=== PATIENT | female | born 1995 | race Caucasian/White ===

== ENCOUNTER 2019-05-19 09:26 | Outpatient (CLI) | payer OTHER ==
--- NOTE | 2019-05-19 13:39 | ULT ---
OB ULTRASOUND: HISTORY: Size and dates. FINDINGS: Real-time imaging of the pelvis shows a single viable intrauterine in a breech presentation . The placenta is anterior in location without evidence of previa. The amniotic fluid is adequate f or this stage of . heart rate is 142 b.p.m. anatomy is unremarkable. Four-chamber heart, normal head, stom ach, kidneys, cord insertion, bladder, spine, extremities are identified. Three-vessel cord. measurements are as follows: BPD: 4.3 cm, 19 weeks 1 day Head circumference: 16.8 cm, 19 weeks 4 days Abdominal circumference: 15.7 cm, 20 weeks 6 days Femur length: 3.1 cm, 19 weeks 6 days IMPRESSION: 1. Single viable intrauterine in the breech presentation, overall measurements correspondi ng to a gestational age of 19 weeks 6 days, estimated date of delivery 10/07/2019. 2. Placenta which is anterior in location without evidence of previa. POS: [facility]
== END 2019-05-19 09:27 | disposition home or self-care (01) ==
LOC: BICULT 09:26
PROVIDERS: ATTEND Family Medicine
DX: Z34.82 Encounter for supervision of other normal pregnancy, second trimester (principal); O32.1XX0 Maternal care for breech presentation, not applicable or unspecified; Z3A.19 19 weeks gestation of pregnancy
CPT/HCPCS: 76805

== ENCOUNTER 2019-08-01 19:07 | Day surgery (SDC) | payer OTHER ==
[2019-08-01 19:54] VITALS: BP 112/67; TEMP 98.2; BMI 19.9
[2019-08-01 19:56] LABS: Amnisure Internal Control QC ACCEPTABLE (ACCEPTABLE); Amnisure Test No Membranes Rupture (No Rupture)
--- NOTE | 2019-08-01 20:25 | PDOC.EVN ---
Event Note - Event Note Event Note: 23 y/o WF at 31-32 weeks with EDC 09/30/19, patient of Dr Xiong presents with lower back pain that worsens at night. Has tried tylenol and heating pad with minimal relief. Denies any leg weakness or bladder/bowel control issues. Had episode today where she felt liquid running down her leg. Not constant. No blood per vagina. Prior full term delivery at 39-40 weeks. Fetus is active... 112/67 P 70 AFHRT 140's. Category 1 tracing. No contractions. Abdomen soft/non tender...Bilateral SI loints tender to palpation.. Amnisure was negative. A/P: Sacroiliac joint pain. Lower back spasms. 31 week gestation. Discussed use of tylenol/heating pads/lower back stretches/piriformis muscle stretching. Will give rx for flexeril 10 mg at hs prn back pain/spasm. Keep f/u with Dr. Xiong next week.
[2019-08-01] MEDS ORDERED: Cyclobenzaprine 10 MG TAB PO SCH (20:30)
== END 2019-08-01 20:43 | disposition home or self-care (01) ==
LOC: L&D/OP 19:07
PROVIDERS: ATTEND Family Medicine
DX: O99.89 Other specified diseases and conditions complicating pregnancy, childbirth and the puerperium (principal); M54.5 Low back pain; M53.3 Sacrococcygeal disorders, not elsewhere classified; Z3A.31 31 weeks gestation of pregnancy
CPT/HCPCS: 84112; 99283

== ENCOUNTER 2019-08-23 21:58 | Day surgery (SDC) | payer OTHER ==
[2019-08-23 22:27] VITALS: BP 109/68; TEMP 98.6; BMI 19.9
[2019-08-23] MEDS ORDERED: hydrALAZINE 20 MG/ML VIAL SLOW IVP PRN (22:36)
[2019-08-23] MEDS ORDERED: Butorphanol Tartrate 1 MG/ML VIAL IM SCH (22:45)
--- NOTE | 2019-08-23 22:52 | PDOC.EVN ---
Event Note - Event Note Event Note: Please see H&P Based on my exam I suspect sacroiliac joint musculoskeletal pain. No real VCAT as dictated. Await cath UA and renal sono. Clinically stable and well. CX was closed per RN exam.
[2019-08-23 23:04] LABS: Bacteria/HPF None Seen HPF (None Seen); Bilirubin Negative (Negative); Blood, Urine Negative (Negative); Clarity Clear (Clear); Glucose, Urine (Dipstick) Normal (Negative); Leukocyte Negative Leu/uL (Negative); Nitrite Negative (Negative); Protein, Urine (Dipstick) Negative (Neg-Trace); RBC/HPF 0-3 HPF (0-3); Squamous Epithelial None Seen HPF (0-3); Urobilinogen Normal mg/dL (Less than 2)
[2019-08-23 23:05] LABS: Urine Culture Reflex Yes Yes
--- NOTE | 2019-08-23 23:19 | HP ---
TIME OF EVALUATION: Time of initial evaluation was roughly 2219. LOCATION: Labor and Delivery triage B. This is a patient of Dr. Xiong. CHIEF COMPLAINT: The patient is here for lower back pain without contractions at 34 weeks. HISTORY OF PRESENT ILLNESS: This is a 24-year-old, G2, P1 with a vaginal delivery 4 years ago, who states that she has had this dull lower back pain, but denies fever, vaginal bleeding, or leakage of fluid. She has some decreased movement as well. She denies recent trauma or any other issues. REVIEW OF SYSTEMS: Complete review of systems was checked and is otherwise negative unless specified in the HPI. PAST MEDICAL HISTORY: Negative. PAST SURGICAL HISTORY: Noncontributory. OB HISTORY: She had a vaginal 4 years ago. ALLERGIES: NONE. SOCIAL HISTORY: Negative x3. PHYSICAL EXAMINATION: VITAL SIGNS: Her blood pressure is 109/68, pulse is 93, temperature is 98.6, respirations 17 and unlabored, O2 saturation is 99% on room air. GENERAL: She is in no acute distress. She seems to have some lower back pain discomfort. There is no appreciable costovertebral angle tenderness, and the uterine fundus is soft and nontender. Cervical exam is currently pending. On the nonstress test, baby's heart tones are in the 140s with accelerations and moderate variability. There are no pathological decelerations nor other contractions on tocodynamometer. ASSESSMENT: This is a 24-year-old, G2, P1, at 34 weeks and 4 days with an EDC of September 29 with nonspecific lower back pain. She does have a history of kidney stones in 2017. PLAN: 1. Based on her history of kidney stones, I have ordered a cath UA to make sure that there is no infection or gross hematuria. I have also ordered a bilateral renal ultrasound to look for any gross abnormalities. I realize that there will be normal hydronephrosis on the right greater than left based on her 34-week gestation. 2. I have ordered Stadol for nonspecific pain medication as conservative measure. 3. We will check her cervix to make sure that there is no abnormal dilation. Job ID: [id number]
--- NOTE | 2019-08-23 23:28 | PDOC.EVN ---
Event Note - Event Note Event Note: UA negative
[2019-08-23] MEDS ORDERED: Promethazine 25 MG TAB PO SCH (23:59)
--- NOTE | 2019-08-24 08:54 | ULT ---
RENAL ULTRASOUND: INDICATION: History of low back pain and and renal stones. COMPARISON: None. FINDINGS: The right kidney measures 10.3 x 3.8 x 4.5 cm. The left kidney measures 10.7 x 5.6 x 4.4 cm. There is mild right-sided hydronephrosis. There are tiny punctate echogenic foci seen within the mid and s uperior pole right kidney likely reflecting nonobstructing calculi. The bladder was decompressed. IMPRESSION: 1. Mild right hydronephrosis. This may be physiologic in nature. 2. Small punctate echogenicities within the superior pole and mid interpolar region of the right kid shayla likely reflecting tiny nonobstructing renal calculi. 3. Left kidney is having normal sonographic appearance. POS: [facility]
== END 2019-08-23 23:55 | disposition home or self-care (01) ==
LOC: L&D/OP 21:58
PROVIDERS: ATTEND Family Medicine
DX: O99.89 Other specified diseases and conditions complicating pregnancy, childbirth and the puerperium (principal); N13.30 Unspecified hydronephrosis; O36.8130 Decreased fetal movements, third trimester, not applicable or unspecified; Z3A.34 34 weeks gestation of pregnancy
CPT/HCPCS: 51701; 76770; 81001; 87086; 96372; 99283; A4353; J0595; Q0169

== ENCOUNTER 2019-08-28 13:24 | Day surgery (SDC) | payer OTHER ==
[2019-08-28] MEDS ORDERED: hydrALAZINE 20 MG/ML VIAL SLOW IVP PRN (14:58)
[2019-08-28 15:08] VITALS: TEMP 98.2; BMI 20.4
--- NOTE | 2019-08-28 15:40 | PRG ---
DATE OF SERVICE: 08/28/2019 PRIMARY OB: Geo Xiong MD CHIEF COMPLAINT: Abdominal pain and back pain and loss of "mucus plug." HISTORY OF PRESENT ILLNESS: The patient is a 24-year-old G2, P1, female with an intrauterine at 35 weeks and 2 days, who is presenting to Labor and Delivery with complaints of lower back pain that she was prescribed hydrocodone on Wednesday #15, which is persisted through the night, making it very difficult for her to sleep. She also reports she was having sharp pains that radiate down her legs and upper back from this point in her lower back. The patient thought what she lost was a mucus plug today and came in for evaluation of labor. The patient denies any fever, cough, headache, chest pain, or shortness of breath. She has had some nausea. Denies vomiting. Denies diarrhea. Has some constipation. Denies any new rashes, hip problems, knee problems, or muscle weakness. Denies vaginal bleeding, leakage of fluid, or urinary urgency or frequency. PAST MEDICAL HISTORY: Recent back pain and insomnia. PAST SURGICAL HISTORY: Negative. ALLERGIES: NO KNOWN DRUG ALLERGIES. MEDICATIONS: 1. Hydrocodone, believe to be 5/325, #15 prescribed last Wednesday. 2. Hydroxyzine. SOCIAL HISTORY: Denies drug, alcohol, or tobacco use. OB LABS: Blood type is O positive. Antibody screen is negative. RPR is nonreactive. Hepatitis B surface antigen is nonreactive. HIV is nonreactive. She is rubella immune. REVIEW OF SYSTEMS: Negative. PHYSICAL EXAMINATION: VITAL SIGNS: Blood pressure is 103/62, pulse of 88, and respiratory rate of 18. GENERAL: She appears to be in no acute distress. She is alert and oriented, cooperative and pleasant to interact with. HEENT: Head is normocephalic, atraumatic. LUNGS: Clear to auscultation bilaterally. HEART: Has a regular rate and rhythm. ABDOMEN: Gravid. She does have some tenderness in the lower pelvis with deviation of the uterus. EXTREMITIES: Nontender, nonedematous. She has no CVA tenderness, but does have significant SI joint tenderness to palpation. heart tracing. Fetus has a baseline in the 150s with moderate long-term variability, positive 15 x 15 accelerations, no decelerations. No contractions are visible on the monitor. ASSESSMENT AND PLAN: The patient is a 24-year-old G2, P1, female with an intrauterine at 35 weeks and 2 days, recently diagnosed with lower back pain and prescribed hydrocodone. She is here for concerns of possible labor. There is no evidence of labor on exam or by heart tracing. Fetus has a category I tracing and reactive NST. Once the tracing is completed, plan at this time is to try to help the patient by walking her to some stretching that may relieve some of this discomfort from her lower back. The patient will likely be discharged home with instructions to follow up with her primary OB as scheduled. Job ID: [id number]
== END 2019-08-28 16:02 ==
LOC: L&D/OP 13:24
PROVIDERS: ATTEND Family Medicine
DX: O99.89 Other specified diseases and conditions complicating pregnancy, childbirth and the puerperium (principal); R10.9 Unspecified abdominal pain; M54.5 Low back pain; N89.8 Other specified noninflammatory disorders of vagina; Z3A.35 35 weeks gestation of pregnancy
CPT/HCPCS: 99283

== ENCOUNTER 2019-09-02 23:25 | Day surgery (SDC) | payer OTHER ==
--- NOTE | 2019-09-03 00:19 | PDOC.FPROB ---
FMR OB H&P: HPI - History of Present Illness Chief Complaint: Cramping Indentification: 24 year old at 36.0 wks History of Present Illness: 24 year old at 36.0 wks presents with cramping after intercourse yesterday. She states the cramping has gotten worse today. She states the cramping lasts for 2 minutes at a time, but she is unable to time how frequently it occurs. Patient denies vaginal bleeding. She endorses discharge with mucous consistency. She endorses good movement. Patient was last seen by Dr. Xiong on . She states she was 2 cm at that time. Patient denies any complications in current . Patient endorses chronic back pain for which she takes Horseheads. She does have Horseheads prescribed per her records. She states she recently ran out. Primary Care Physician: Tyrese FMR OB H&P: Current - Care : 3 Para: 1011 Gestational age: 36 wks Due date: 09/30/2019 - OB Labs Blood type: O RH: positive Antibody Screen: negative HIV: negative RPR: negative HepBsAg: negative Rubella: immune Urine drug screen: negative Gonorrhea: negative Chlamydia: negative 1 hour gtt: 63 GBS: unknown FMR OB H&P: History - Past Medical History PMH: Chronic back pain on opiate medication - OB History OB History: AB x1 x1 - ACTIVE DIRECTORY SPECIALIST History ACTIVE DIRECTORY SPECIALIST History: Denies history of STD's - Surgical History Sx History: Tonsillectomy Adenoidectomy Kidney stone removal - Social History Social History: Denies alcohol, tobacco, drug use FMR OB H&P: Medications - Current Home Medications: Medication Instructions Recorded Confirmed Type Acetaminophen With Codeine 1 tab PO PRN PRN 09/02/19 09/02/19 History [Tylenol with Codeine #3 Tablet] hydrOXYzine HCl [hydrOZYzine HCl] 1 tab PO DAILY 09/02/19 09/02/19 History Allergies/Adverse Reactions: Allergies Allergy/AdvReac Type Severity Reaction Status Date / Time No Known Allergies Allergy Verified 08/23/19 22:23 FMR OB H&P: ROS - Review of Systems General: denies: fever/chills, weight/appetite/sleep changes Eyes: denies: vision changes, scotomas ENT: denies: nasal congestion, rhinorrhea, sore throat Cardiovascular: denies: chest pain, palpitation, edema Respiratory: denies: cough, congestion, shortness of breath Gastrointestinal: reports: abdominal pain, cramping. denies: diarrhea Genitourinary (Female): reports: vaginal discharge, contractions. denies: dysuria, vaginal pain, vaginal bleeding Musculoskeletal: reports: pain (low back), stiffness, tenderness Neurologic: denies: numbness, syncope Integumentary: denies: itching, rash Psychological: denies: depression, anxiety FMR OB H&P: Vital Signs - Maternal Vital signs: BP 112/62 Pulse 70 Afebrile - Heart Tones Baseline: 150 Variability: moderate Acceleration: present Deceleration: absent Category: category 1 [place] contractions every: None FMR OB H&P: Physical Exam - Physical Exam General: NAD, awake, alert and oriented HEENT: MMM, grossly normal vision, grossly normal hearing Heart: RRR, pulses present General: CTAB, no respiratory distress Abdomen: soft, gravid, non-tender, bowel sound present Musculoskeletal: pulses present, FROM in all four extremities Neurological: no tremor, no focal deficit Skin: no rash, capillary refill <2 seconds Lymphatic: no unusual bruising or bleeding, no purpura Psychiatric: intact recent and remote memory, good judgement and insight, normal mood and affect - Pelvic Exam SVE: 06/06/-3 Presentation: [place] FMR OB H&P: A/P - Problem List (1) Intrauterine Status: Acute Code(s): Z34.90 - ENCNTR FOR SUPRVSN OF NORMAL , UNSP, UNSP TRIMESTER Disposition: 24 year old at 36 wks presents with abdominal cramping sIUP, - 36 wks - No cervical change from last (SVE 2/thick/high on presentation to L& D and after 2 hours) - Patient does live one hour away; monitored for 2 hours with no cervical change - PO hydration - Suspect cramping 2/2 recent sexual intercourse - Minimal contractions on monitor, patient appears comfortable - Strict return precautions provided Chronic low back pain - Patient on Horseheads per chart review - Patient reportedly ran out of Horseheads and is having significant low back/hip pain, Tylenol #3 written for 5 pills. Patient advised to follow up with PCP for refill on chronic medications on Wednesday - INFORMATICIST Aware reviewed - Reassurance provided Dispo: No evidence of PTL. Strict return precautions provided. Patient advised to follow up with primary OB provider early next week. Discussion: Date/Time: 09/03/19 0017 This H&P was discussed with Dr. Ram who agrees with the above documentation and plan. Signature: Veronica Narvaez, PGY-3 Addendum - Attending - Attending Attestation Date/Time: 09/05/19 2798 I personally evaluated the patient and discussed the management with Dr. Narvaez I agree with the History, Examination, Assessment and Plan documented above with any addition or exceptions noted below.
[2019-09-03] MEDS ORDERED: hydrALAZINE 20 MG/ML VIAL SLOW IVP PRN (01:27)
[2019-09-03] MEDS ORDERED: Lactated Ringer's 1,000 ML IV SCH (01:30)
== END 2019-09-03 02:20 | disposition home or self-care (01) ==
LOC: L&D/OP 23:25
PROVIDERS: ATTEND Family Medicine
DX: O99.89 Other specified diseases and conditions complicating pregnancy, childbirth and the puerperium (principal); R10.9 Unspecified abdominal pain; O99.353 Diseases of the nervous system complicating pregnancy, third trimester; G89.29 Other chronic pain; M54.5 Low back pain; Z3A.36 36 weeks gestation of pregnancy; Z79.899 Other long term (current) drug therapy

== ENCOUNTER 2019-09-16 13:10 | Inpatient (IN) | payer OTHER ==
[~2019-09-16 13:10] MED LIST changes: +Bupivacaine/Epinephrine 0.25% 30 ML VIAL ONE; -Ondansetron PF 4 MG/2 ML Vial ONE; -hydrALAZINE 20 MG/ML VIAL SLOW IVP PRN
[2019-09-16] MEDS ORDERED: Promethazine HCl 25 MG/ML VIAL IM PRN ×2 (13:40→16:19)
[2019-09-16] MEDS ORDERED: hydrALAZINE 20 MG/ML VIAL SLOW IVP PRN (13:40)
[2019-09-16] MEDS ORDERED: Diphenoxylate HCl/Atropine Tablet PO PRN (13:40)
[2019-09-16] MEDS ORDERED: Methylergonovine 0.2 MG/ML VIAL IM PRN (13:40)
[2019-09-16] MEDS ORDERED: Carboprost 250 MCG/ML AMP IM PRN (13:40)
[2019-09-16] MEDS ORDERED: Ibuprofen 800 MG TAB PO PRN (13:40)
[2019-09-16] MEDS ORDERED: Butorphanol Tartrate 1 MG/ML VIAL SLOW IVP PRN (13:40)
[2019-09-16] MEDS ORDERED: Misoprostol 200 MCG TAB PR PRN (13:40)
[2019-09-16] MEDS ORDERED: Lidocaine 1% (PF) 30 ML VIAL SC PRN (13:40)
[2019-09-16] MEDS ORDERED: Ondansetron PF 4 MG/2 ML Vial IVP PRN ×2 (13:40→16:19)
[2019-09-16] MEDS ORDERED: HYDROcodone/Acetaminophen 5/325 mg Tablet PO PRN (13:40)
[2019-09-16] MEDS ORDERED: NS w/ Oxytocin 10 units 500 ML IV SCH ×2 (13:45)
[2019-09-16 14:09] LABS: Hemoglobin 9.7 g/dL (12.0-16.0); Mean Corpuscular Hemoglobin 31.8 pg (27.0-31.0); Mean Corpuscular Volume 90.7 fL (78.0-98.0); Mean Platelet Volume 8.4 fL (7.4-10.4); Platelet Count 230 thou/uL (130-400); RBC Distribution Width 11.7 % (11.5-14.5); Red Blood Cell (RBC) Count 3.05 mill/uL (4.20-5.40); White Blood Cell (WBC) Count 12.9 thou/uL (4.8-10.8)
[2019-09-16 14:36] VITALS: BMI 21.2
[2019-09-16 14:51] LABS: HBSAg Index 0.21 S/CO (0-0.99); Hep B Surf Ag Non-Reactive S/CO (NonReactive); Syphilis Antibody Nonreactive (Nonreactive); Syphilis Antibody Index 0.03 S/CO (<1.00 Non-Reactive)
[2019-09-16] MEDS ORDERED: Fentanyl 4 mcg/Bup 0.1% Cadd 100 ML ONE ×2 (15:14→22:28)
[2019-09-16] MEDS: Fentanyl 4 mcg/Bupivacaine 0.1% Cassette 100 ML EPIDURAL SCH ×2 (16:00→22:32)
[2019-09-16] MEDS ORDERED: diphenhydrAMINE 50 MG/ML VIAL IVP PRN (16:19)
[2019-09-16] MEDS ORDERED: Lactated Ringer's 500 ML IV PRN (16:19)
[2019-09-16] MEDS ORDERED: Acetaminophen 325 MG TAB PO PRN (16:19)
[2019-09-16] MEDS ORDERED: EPHEDRINE 25 MG/5 ML SYRINGE SLOW IVP PRN (16:19)
[2019-09-16] MEDS ORDERED: Naloxone HCl 0.4 mg/ml Vial IVP PRN ×2 (16:19)
[2019-09-16] MEDS: Lactated Ringer's 1,000 ML IV SCH (21:51)
[2019-09-17] MEDS: NS / Oxytocin 40 units/1000ml 1,000 ML IV PRN ×2 (00:27→00:46)
[2019-09-17] MEDS ORDERED: Milk Of Magnesia 30 ML UDCUP PO PRN (01:47)
[2019-09-17] MEDS ORDERED: Ondansetron PF 4 MG/2 ML Vial IVP PRN (01:47)
[2019-09-17] MEDS ORDERED: Bisacodyl 10 MG SUPP PR PRN (01:47)
[2019-09-17] MEDS ORDERED: NS / Oxytocin 40 units/1000ml 1,000 ML IV SCH (01:47)
[2019-09-17] MEDS ORDERED: Lanolin Ointment 7 GM TUBE TOP PRN (01:47)
[2019-09-17] MEDS ORDERED: Benzocaine-Menthol 82.5 ML CAN TOP PRN (01:47)
[2019-09-17] MEDS ORDERED: Preparation H Ointment 28 GM TUBE PR PRN (01:47)
[2019-09-17] MEDS ORDERED: hydrALAZINE 20 MG/ML VIAL SLOW IVP PRN (01:47)
[2019-09-17] MEDS ORDERED: diphenhydrAMINE 25 MG CAP PO PRN (01:47)
[2019-09-17] MEDS: HYDROcodone/Acetaminophen 5/325 mg Tablet PO PRN ×3 (02:40→20:27)
[2019-09-17] MEDS: Communication Order-Pharmacy FS SCH ×2 (03:21→10:34)
[2019-09-17] MEDS: Lactated Ringer's 1,000 ML IV SCH (03:22)
[2019-09-17] MEDS ORDERED: Adacel (T-DAP) 0.5 ML SYRINGE IM ONE (09:00)
[2019-09-17] MEDS: Ibuprofen 800 MG TAB PO SCH ×2 (09:00→16:21)
[2019-09-17] MEDS: Docusate Calcium (SURFAK) 240 MG CAP PO SCH ×2 (09:00→20:27)
[2019-09-17] MEDS: Prenatal Vitamin 1 TAB PO SCH (09:00)
[2019-09-17] MEDS: Ferrous Sulfate 325 MG TAB PO SCH ×2 (09:00→16:21)
[2019-09-18] MEDS: HYDROcodone/Acetaminophen 5/325 mg Tablet PO PRN ×4 (00:42→17:49)
[2019-09-18] MEDS: Ibuprofen 800 MG TAB PO SCH ×3 (00:43→16:13)
[2019-09-18 07:35] VITALS: BP 101/69; TEMP 98
[2019-09-18] MEDS: Docusate Calcium (SURFAK) 240 MG CAP PO SCH (08:42)
[2019-09-18] MEDS: Ferrous Sulfate 325 MG TAB PO SCH ×2 (08:42→16:13)
[2019-09-18] MEDS: Prenatal Vitamin 1 TAB PO SCH (08:42)
[2019-09-18] MEDS: Communication Order-Pharmacy FS SCH (17:51)
--- NOTE | 2019-09-19 11:53 | HP ---
CHIEF COMPLAINT: Contractions. HISTORY OF PRESENT ILLNESS: This is a 24-year-old white female, G2, P1 at 38 weeks estimated gestational age with onset of contractions early in the morning of 09/16/2019. They gradually increased in frequency and intensity. No leakage of fluid, reports activity, no bleeding. PAST MEDICAL HISTORY: No chronic disease. PAST SURGICAL HISTORY: No surgeries. FAMILY HISTORY: Noncontributory. SOCIAL HISTORY: . Lives with her spouse and daughter. Denies alcohol, tobacco, or drugs. PHYSICAL EXAMINATION: VITAL SIGNS: Afebrile with normal vital signs. ENT: Within normal limits. LUNGS: Clear. HEART: Regular rate and rhythm. ABDOMEN: Gravid, soft, nontender. EXTREMITIES: +1 edema in lower extremities. GENITOURINARY: Sterile vaginal exam, /-1. heart tones 130, moderate variability, accelerations are present, no decelerations. Contractions are q.3-4 minutes. ASSESSMENT AND PLAN: 1. Term , 38 weeks. 2. Prolonged latent phase. Since the patient lives over an hour away and has made multiple visits for threatened labor and has made cervical change since her last visit yesterday, we will admit, augment contractions and artificial rupture of membranes, epidural p.r.n. Job ID: [id number]
--- NOTE | 2019-09-21 07:08 | PQF ---
Tonya Trinidad ROLAND R MD [id number] CLINICAL DOCUMENTATION CLARIFICATION FORM: POST DISCHARGE Addendum to original discharge summary date: ____ Late entry note date: __ DATE:09/21/2019 ATTN: Geo Espinosa Please exercise your independent, professional judgment in responding to the clarification form. Clinical indicators are provided on the bottom of this form for your review Please check appropriate box(s): [ ] Associated Diagnosis: Acute blood loss anemia [ ] Abnormal Laboratory not clinically significant [ ] Other diagnosis [ ] Unable to determine In addition, please specify: Present on Admission (POA): [ ] Yes [ ] No [ ] Unable to determine For continuity of documentation, please document condition throughout progress notes and discharge summary. Thank You. CLINICAL INDICATORS - SIGNS / SYMPTOMS/ LABS are present in the medical record: Laboratory 09/15 RBC 3.05, Hgb 9.7, Hct 27.6 L&D Summary Estimated blood loss 120 ml Vital Signs BP: 09/16=98/50,96/51,99/50,91/55 RISK FACTORS L&D Summary 38 weeks ot gestation L&D Summary s/p TREATMENT JUN 15- IVF LR 1L JUN 15 Ferrous Sulfate 325 mg oral Collected 09/15 Laboratory monitoring (This form is maintained as a part of the permanent medical record) 2014 [employer] All Rights Reserved [email or web address]
== END 2019-09-18 18:42 | disposition home or self-care (01) | DRG 807 ==
LOC: L&D/OP 13:10 → L&D-LIB 15:37 → 3SW 09-17 02:12
PROVIDERS: ADMIT Family Medicine; ATTEND Family Medicine
PROC: 10E0XZZ Delivery of Products of Conception, External Approach (ICD-10-PCS; principal; 2019-09-17)
PROC: 10907ZC Drainage of Amniotic Fluid, Therapeutic from Products of Conception, Via Natural or Artificial Opening (ICD-10-PCS; 2019-09-17)
DX: O80 Encounter for full-term uncomplicated delivery (principal); Z37.0 Single live birth; Z3A.38 38 weeks gestation of pregnancy
CPT/HCPCS: 36415; 51702; 85027; 86780; 86850; 86900; 86901; 87340; 99282; 99285; J1200; J2405; J2590

== ENCOUNTER → 2019-09-16 | Day surgery (SDC) | payer OTHER ==
[~2019-09-16] MED LIST: Ondansetron PF 4 MG/2 ML Vial ONE; hydrALAZINE 20 MG/ML VIAL SLOW IVP PRN
--- NOTE | 2019-09-16 03:59 | PDOC.FPROB ---
FMR OB H&P: HPI - History of Present Illness Chief Complaint: Contractions Indentification: at 38.0 wks History of Present Illness: at 38.0 wks that presents with contractions q10 minutes and loss of mucous plug with associated vaginal spotting that has since resolved. Patient denies fever, chills, cough, congestion, vaginal discharge, LoF. Patient endorses good movement. Patient was 2 cm last week when she presented with contractions. She states she was seen by Dr. Xiong on . She was 2 cm at that time. She states she was told she needed to come in for induction today at 11 AM, but there is no record of induction scheduled, and she has no apparent medical reason to be induced prior to 39 weeks. Primary Care Physician: Tyrese FMR OB H&P: Current - Care : 3 Para: 1011 Gestational age: 38 Due date: 09/30/2019 - OB Labs Blood type: O RH: positive Antibody Screen: negative HIV: negative RPR: negative HepBsAg: negative Rubella: immune Urine drug screen: negative Gonorrhea: negative Chlamydia: negative 1 hour gtt: 63 GBS: unknown FMR OB H&P: History - Past Medical History PMH: Chronic back pain on opiate medication - OB History OB History: AB x1 x1 - MEDICAL BILLING SPECIALIST History MEDICAL BILLING SPECIALIST History: Denies history of STD's - Surgical History Sx History: Tonsillectomy Adenoidectomy Kidney stone removal - Social History Social History: Denies tobacco, alcohol, or drug use FMR OB H&P: Medications - Current Home Medications: Medication Instructions Recorded Confirmed Type Acetaminophen With Codeine 1 tab PO PRN PRN 09/02/19 09/16/19 History [Tylenol with Codeine #3 Tablet] hydrOXYzine HCl [hydrOZYzine HCl] 1 tab PO DAILY 09/02/19 09/16/19 History Allergies/Adverse Reactions: Allergies Allergy/AdvReac Type Severity Reaction Status Date / Time No Known Allergies Allergy Verified 08/23/19 22:23 FMR OB H&P: ROS - Review of Systems General: denies: fever/chills, weight/appetite/sleep changes Eyes: denies: vision changes, scotomas ENT: denies: nasal congestion, rhinorrhea, sore throat Cardiovascular: reports: edema (swelling in feet). denies: chest pain, palpitation Gastrointestinal: reports: abdominal pain. denies: nausea, vomiting, diarrhea Genitourinary (Female): reports: vaginal bleeding (after loss of mucous plug, that resolved), contractions, vaginal pressure. denies: dysuria, vaginal discharge, vaginal pain Musculoskeletal: reports: pain (back), stiffness (back) Neurologic: denies: numbness, syncope Integumentary: denies: itching, rash Psychological: denies: depression, anxiety FMR OB H&P: Vital Signs - Maternal Vital signs: BP 116/58 Pulse 74 Temp 98.2F - Heart Tones Baseline: 140 Variability: moderate Acceleration: present Deceleration: absent [place] contractions every: single contraction noted on toco FMR OB H&P: Physical Exam - Physical Exam General: NAD, awake, alert and oriented HEENT: MMM, grossly normal vision, grossly normal hearing Heart: RRR, pulses present General: CTAB Abdomen: soft, gravid, non-tender Musculoskeletal: pulses present, FROM in all four extremities Neurological: no tremor, no focal deficit Skin: no rash, capillary refill <2 seconds Lymphatic: no unusual bruising or bleeding, no purpura - Pelvic Exam SVE: /-2 FMR OB H&P: A/P - Problem List (1) Intrauterine Current Visit: No Status: Acute Code(s): Z34.90 - ENCNTR FOR SUPRVSN OF NORMAL , UNSP, UNSP TRIMESTER (2) Chronic back pain Current Visit: Yes Status: Acute Code(s): M54.9 - DORSALGIA, UNSPECIFIED; G89.29 - OTHER CHRONIC PAIN Disposition: 24 year old at 38 wks sIUP, term - SVE /-2, unchanged from in office exam - Patient does live an hour away, so she was monitored for 2 hours and rechecked without change - Occasional contractions on monitor - NST reactive - Patient states she was told to come in today at 11 for induction. She is not on schedule and is 38 weeks without clear medical reason for induction prior to 39 weeks. I advised patient to call her primary OB's weekend line tomorrow to discuss further, but there was not an indication at this time to induce - Vaginal spotting noted after first cervical check. No blood noted with second cervical check. Patient did state she had some spotting after she lost her mucous plug, but it had resolved prior to arrival. Patient reports she had her membranes stripped on , which could certainly cause some vaginal spotting as well. Chronic low back pain - Patient on [place] and Tylenol #3 during , states she hasn't taken in a week Dispo: No evidence of labor at this time. SVE unchanged. Strict return precautions provided to include LoF, painful contractions q3-5 min, increased vaginal spotting/bleeding. Patient voiced understanding regarding these return precautions. Discussion: Date/Time: 09/16/19 7059 This H&P was discussed with Dr. Hassan who agrees with the above documentation and plan. Signature: Veronica Narvaez DO PGY-3 Addendum - Attending - Attending Attestation Date/Time: 09/16/19 0681 I personally evaluated the patient and discussed the management with Dr. Vann. I agree with the History, Examination, Assessment and Plan documented above with any addition or exceptions noted below.
== END ==
LOC: L&D/OP 02:02
PROVIDERS: ATTEND Family Medicine
DX: O47.1 False labor at or after 37 completed weeks of gestation (principal); O26.853 Spotting complicating pregnancy, third trimester; O99.89 Other specified diseases and conditions complicating pregnancy, childbirth and the puerperium; G89.29 Other chronic pain; M54.5 Low back pain; O09.293 Supervision of pregnancy with other poor reproductive or obstetric history, third trimester; Z3A.38 38 weeks gestation of pregnancy
CPT/HCPCS: J2405

== ENCOUNTER 2021-10-23 19:00 | Emergency (ER) | payer OTHER, SELFPAY ==
[2021-10-23 19:21] LABS: #Eosinphils 0.1 thou/uL (0.0-0.7); #Lymphocytes 2.4 thou/uL (1.20-3.40); #Monocytes 0.5 thou/uL (0.11-0.59); #Neutrophils 5.6 thou/uL (1.40-6.50); %Basophils 0.1 % (0.0-1.0); %Eosinophils 0.8 % (0.0-10.0); %Lymphocytes 27.9 % (21.0-51.0); %Monocytes 5.8 % (0.0-10.0); %Neutrophils 65.4 % (42.0-75.0); Hemoglobin 10.5 g/dL (12.0-16.0); Mean Corpuscular HGB CONC 33.7 g/dL (32.0-36.0); Mean Corpuscular Hemoglobin 30.5 pg (27.0-31.0); Mean Corpuscular Volume 90.5 fL (78.0-98.0); Mean Platelet Volume 7.7 fL (7.4-10.4); Platelet Count 284 thou/uL (130-400); RBC Distribution Width 11.5 % (11.5-14.5); Red Blood Cell (RBC) Count 3.43 mill/uL (4.20-5.40); White Blood Cell (WBC) Count 8.5 thou/uL (4.8-10.8)
[2021-10-23 19:45] LABS: ALT (SGPT) 9 U/L (8-55); AST (SGOT) 10 U/L (5-34); Albumin 3.4 g/dL (3.5-5.0); Alkaline Phosphatase 36 U/L (40-110); Anion Gap 12 mmol/L (10-20); BUN (Urea Nitrogen) 5 mg/dL (7.0-18.7); Calc. Creatinine Clearance 0 mL/min (70-130); Calcium 8.8 mg/dL (7.8-10.44); Carbon Dioxide 21 mmol/L (22-29); Chloride 108 mmol/L (98-107); Estimated GFR 125; Globulin 2.8 g/dL (2.4-3.5); Glucose 89 mg/dL (70-105); Lipase 16 U/L (8-78); Potassium 3.3 mmol/L (3.5-5.1); Protein, Total 6.2 g/dL (6.0-8.3); Sodium 138 mmol/L (136-145)
[2021-10-23] MEDS ORDERED: Potassium Chloride 20 MEQ TAB ONE ×2 (20:38→20:56)
[2021-10-23] MEDS ORDERED: Acetaminophen 325 MG TAB ONE (21:09)
== END 2021-10-23 21:14 | disposition home or self-care (01) ==
LOC: ERS 19:00
DX: O26.892 Other specified pregnancy related conditions, second trimester (principal); R10.32 Left lower quadrant pain; R10.819 Abdominal tenderness, unspecified site; Z3A.17 17 weeks gestation of pregnancy
CPT/HCPCS: 36415; 76856; 80053; 83690; 84702; 85025; 93976

== ENCOUNTER 2022-11-12 15:20 | Outpatient (CLI) | payer BC | END 2022-11-12 15:21 | disposition home or self-care (01) | LOC: RAD 15:20 | PROVIDERS: ATTEND Nurse Practitioner Family | DX: M54.2 Cervicalgia (principal); M54.50 Low back pain, unspecified | CPT/HCPCS: 72040; 72072; 72100 ==